=== PATIENT | female | born 1945 | race Caucasian/White ===

== ENCOUNTER 2021-05-29 07:09 | Inpatient (IN) | payer MEDICARE, OTHER ==
[2021-05-26 09:24] LABS: BASOPHILS % 0.4 % (0.0-1.0); EOSINOPHILS # (AUTO) 0.1 (0.0-0.4); EOSINOPHILS % 0.7 % (0.0-6.0); HEMATOCRIT 48.4 % (34.2-44.1); HEMOGLOBIN 15.3 g/dL (12.0-16.0); LYMPHOCYTES # (AUTO) 2.2 (1.0-3.2); LYMPHOCYTES % 21.7 % (18.0-39.1); MEAN CORPUSCULAR HEMOGLOBIN 28.6 pg (28-32); MEAN CORPUSCULAR HGB CONC 31.6 g/dL (31-35); MEAN CORPUSCULAR VOLUME 90.5 fL (81-99); MONOCYTES # (AUTO) 0.7 (0.2-0.8); MONOCYTES % 6.5 % (4.4-11.3); NEUTROPHILS # (AUTO) 7.1 (2.1-6.9); PLATELET COUNT 300 x10e3/uL (140-360); RED BLOOD COUNT 5.35 x10e6/uL (3.6-5.1); RED CELL DISTRIBUTION WIDTH 13.6 % (11.7-14.4)
[2021-05-26 09:51] LABS: ANION GAP 19.7 mmol/L (8-16); CALCIUM 10.6 mg/dL (8.4-10.2); CREATININE, SERUM 1.31 mg/dL (0.57-1.11); POTASSIUM 4.7 mmol/L (3.5-5.1)
[~2021-05-29 07:09] MED LIST: ALIGN4 MG PO; ALTOPREV40 MG PO; ASPIRIN81 MG PO; ELIQUIS5 MG PO; LOSARTAN POTASS25 MG PO; METFORMIN HCL500 MG PO; METOPROLOL SUCC25 MG PO; OXYBUTYNIN CHLOR5 M1 PO; OZEMPIC0.25 MG/0. SC; PAROXETINE HCL20 MG PO; TRESIBA100 UNIT/1 SC; TYLENOL#3 PO
[2021-05-29] MEDS ORDERED: SODIUM CHLORIDE 0.9% 50ML 100 ML ONE (07:30)
[2021-05-29] MEDS ORDERED: BUPIVACAINE 0.25% 30ML SDV ONE (09:32)
[2021-05-29] MEDS ORDERED: ONDANSETRON HCL INJ 2MG/ML 2ML 2 MG/ML VIAL ONE (12:19)
[2021-05-29] MEDS ORDERED: FENTANYL CITRATE/PF 100MCG/2 ML INJ ONE (12:32)
[2021-05-29] MEDS ORDERED: METOCLOPRAMIDE HCL 10 MG/2ML VIAL ONE (12:44)
[2021-05-29] MEDS ORDERED: SCOPOLAMINE 1.5 MG PATCH ONE (12:53)
[2021-05-29] MEDS ORDERED: ONDANSETRON HCL INJ 2MG/ML 2ML 2 MG/ML VIAL IV PRN (13:30)
[2021-05-29] MEDS ORDERED: DEXTROSE 50% SYRINGE 50 ML IV PRN (13:30)
[2021-05-29] MEDS: SODIUM CHLORIDE 0.9% 1000ML 1,000 ML IV SCH ×2 (13:50→22:55)
[2021-05-29] MEDS: MORPHINE SULFATE INJ 2 MG/ML SYR IV PRN ×3 (13:50→20:21)
[2021-05-29] MEDS ORDERED: ACTOS15 MG PO (14:11)
[2021-05-29 16:02] VITALS: BP 163/55
[2021-05-29] MEDS ORDERED: METOCLOPRAMIDE HCL 10 MG/2ML VIAL IV ONE (16:15)
[2021-05-29] MEDS ORDERED: DEXAMETHASONE SOD PHOS INJ 4 MG/ML SDV IV ONE (16:15)
[2021-05-29] MEDS: INSULIN REGULAR, HUMAN 100 UNIT/1 ML SQ SCH (18:00)
[2021-05-29 20:00] VITALS: BP 146/60
[2021-05-29] MEDS: ENOXAPARIN SOD INJ 40 MG/0.4 ML SYR SC SCH (20:06)
[2021-05-29 20:56] VITALS: BP 146/60
[2021-05-30] VITALS: BP 115/47
[2021-05-30] MEDS: INSULIN REGULAR, HUMAN 100 UNIT/1 ML SQ SCH ×2 (00:41→05:48)
[2021-05-30] MEDS: HYDROCODONE/APAP 7.5MG-325MG 1 EA TAB PO PRN ×2 (03:58→08:25)
[2021-05-30 04:00] VITALS: BP 124/46
[2021-05-30 06:23] LABS: BASOPHILS % 0.1 % (0.0-1.0); HEMATOCRIT 41.9 % (34.2-44.1); HEMOGLOBIN 13.4 g/dL (12.0-16.0); LYMPHOCYTES # (AUTO) 1.5 (1.0-3.2); LYMPHOCYTES % 15.8 % (18.0-39.1); MEAN CORPUSCULAR HEMOGLOBIN 28.8 pg (28-32); MEAN CORPUSCULAR VOLUME 90.1 fL (81-99); MONOCYTES # (AUTO) 0.8 (0.2-0.8); MONOCYTES % 8.2 % (4.4-11.3); NEUTROPHILS # (AUTO) 6.9 (2.1-6.9); NEUTROPHILS % 75.1 % (38.7-80.0); PLATELET COUNT 263 x10e3/uL (140-360); RED BLOOD COUNT 4.65 x10e6/uL (3.6-5.1)
[2021-05-30 06:55] LABS: ANION GAP 20.6 mmol/L (8-16); CREATININE, SERUM 1.02 mg/dL (0.57-1.11); MAGNESIUM 1.8 MG/DL (1.3-2.1); PHOSPHORUS 3.4 MG/DL (2.3-4.7); POTASSIUM 4.6 mmol/L (3.5-5.1)
[2021-05-30] MEDS: SODIUM CHLORIDE 0.9% 1000ML 1,000 ML IV SCH (07:16)
[2021-05-30] MEDS: ENOXAPARIN SOD INJ 40 MG/0.4 ML SYR SC SCH (08:24)
[2021-05-30 08:59] VITALS: BP 132/50
[2021-05-30 09:39] VITALS: BP 132/50
== END 2021-05-30 10:26 | disposition home or self-care (01) | DRG 621 ==
LOC: OR 07:09 → PACU V 12:07 → MED/SURG 13:34
PROVIDERS: ADMIT Surgery; ATTEND Surgery
PROC: 0DB64Z3 Excision of Stomach, Percutaneous Endoscopic Approach, Vertical (ICD-10-PCS; principal; 2021-05-29 09:30)
DX: E66.01 Morbid (severe) obesity due to excess calories (principal); Z68.43 Body mass index [BMI] 50.0-59.9, adult; I10 Essential (primary) hypertension; E11.9 Type 2 diabetes mellitus without complications; Z20.822 Contact with and (suspected) exposure to COVID-19; Z79.4 Long term (current) use of insulin; G47.33 Obstructive sleep apnea (adult) (pediatric); M19.90 Unspecified osteoarthritis, unspecified site; F17.210 Nicotine dependence, cigarettes, uncomplicated
CPT/HCPCS: 36415; 71046; 80048; 82948; 83735; 84100; 85025; 93005; J0690; J1100; J1650; J1817; J2270; J2405; J2765; J3010; J7030; U0002